=== PATIENT | female | born 1980 | race Caucasian/White ===

== ENCOUNTER 2019-09-03 09:56 | Emergency (ER) | payer OTHER ==
[~2019-09-03] VITALS: Ht 165.1 cm; Wt 59.6 kg
[~2019-09-03 09:56] MED LIST: DEXT10TA7 PO; [UNRECOGNIZED DRUG - REMARK]
[2019-09-03 10:16] VITALS: BP 116/67
== END 2019-09-03 11:21 | disposition home or self-care (01) ==
LOC: ED 11:15
DX: S09.90XA Unspecified injury of head, initial encounter (principal); X58.XXXA Exposure to other specified factors, initial encounter; Y93.89 Activity, other specified; Y92.89 Other specified places as the place of occurrence of the external cause; Y99.8 Other external cause status
CPT/HCPCS: 99281